=== PATIENT | female | born 1990 | race Caucasian/White ===

== ENCOUNTER 2019-03-30 14:32 | Inpatient (IN) | payer OTHER ==
[~2019-03-30] VITALS: Ht 157.5 cm; Wt 81.6 kg
[2019-03-30] MEDS ORDERED: LACTATED RINGERS 1,000 ML IV SCH (14:37)
[2019-03-30] MEDS ORDERED: NALBUPHINE 10 MG/ML AMP IVP PRN (14:40)
[2019-03-30] MEDS ORDERED: METHYLERGONOVINE 0.2 MG/ML AMP IM PRN (14:40)
[2019-03-30] MEDS ORDERED: PROMETHAZINE 25 MG/ML VIAL IVP PRN (14:40)
[2019-03-30] MEDS ORDERED: CARBOPROST 250 MCG/ML AMP IM PRN (14:40)
[2019-03-30] MEDS ORDERED: AMPICILLIN 2,000 MG VIAL ONE (15:00)
[2019-03-30] MEDS ORDERED: PREN-380 PO (15:09)
[2019-03-30 15:17] LABS: BASOPHILS % (AUTO) 0.2 % (0.0-2.0); EOSINOPHILS % (AUTO) 0.2 % (0.0-4.0); HEMATOCRIT 38.3 % (36-48); HEMOGLOBIN 12.8 g/dL (12.0-16.0); LYMPHOCYTES # (AUTO) 2.3 K/uL (2.5-16.5); LYMPHOCYTES % (AUTO) 24.2 % (20.5-51.1); MEAN CORPUSCULAR HEMOGLOBIN 27 pg (27-31); MEAN CORPUSCULAR HGB CONC 33 g/dL (33-37); MEAN CORPUSCULAR VOLUME 81.8 fL (80-94); MONOCYTES # (AUTO) 0.4 K/uL (0.8-1.0); MONOCYTES % (AUTO) 4.4 % (1.7-9.3); NEUTROPHILS # (AUTO) 6.7 K/uL (1.8-7.7); PLATELET COUNT (AUTO) 286 K/uL (140-450); RED BLOOD CELL COUNT(AUTO) 4.69 MIL/uL (4.20-5.40); RED CELL DISTRIBUTION WIDTH 12.8 % (11.6-13.7); WHITE BLOOD COUNT (AUTO) 9.4 K/uL (4.8-10.8)
[2019-03-30] MEDS ORDERED: AMPICILLIN 2,000 MG in NACL 0.9% MINI-BAG PLUS 100 ML IV SCH (15:30)
[2019-03-30 15:32] LABS: APPEARANCE,URINE CLEAR (CLEAR); BILIRUBIN,URINE NEGATIVE (NEGATIVE); BLOOD, URINE TRACE-I (NEGATIVE); COLOR,URINE YELLOW (YELLOW); LEUKOCYTE ESTERASE ,URINE 1+ (NEGATIVE); NITRITE, URINE NEGATIVE (NEGATIVE); UGLUCOSE NEGATIVE (NEGATIVE)
[2019-03-30 15:37] LABS: ALBUMIN 2.7 g/dL (3.4-5.0); ANION GAP 16.9 (8-16); CREATININE 0.6 mg/dL (0.6-1.3); POTASSIUM 3.9 mmol/L (3.5-5.1); TOTAL BILIRUBIN 0.4 mg/dL (0.0-1.0)
[2019-03-30 15:49] LABS: RBC,URINE 0-5 /HPF (0-5)
[2019-03-30 16:00] VITALS: BP 120/66
[2019-03-30] MEDS ORDERED: BUPIVACAINE 0.125%/NS PREMIX 250 ML ONE (18:12)
[2019-03-30] MEDS ORDERED: EPIDURAL KEYS MC ONE (18:13)
[2019-03-30] MEDS ORDERED: BUPIVACAINE 0.125%/NS PREMIX 250 ML EPI SCH (18:15)
[2019-03-30] MEDS ORDERED: AMPICILLIN 1,000 MG in NACL 0.9% 50 ML IV SCH (19:30)
[2019-03-30] MEDS ORDERED: AMPICILLIN 1,000 MG VIAL ONE (19:42)
[2019-03-30] MEDS ORDERED: OXYTOCIN 20 UNITS/LR PREMIX 1,000 ML IV ONE (22:07)
[2019-03-30] MEDS ORDERED: OXYTOCIN 20 UNITS in LACTATED RINGERS 1,000 ML IV SCH (22:20)
[2019-03-30] MEDS ORDERED: OXYTOCIN 20 UNITS/LR PREMIX 1,000 ML IV SCH (23:09)
[2019-03-31] MEDS ORDERED: METHYLERGONOVINE 0.2 MG/ML AMP IM PRN (00:45)
[2019-03-31] MEDS ORDERED: IBUPROFEN 800 MG TAB PO PRN (00:45)
[2019-03-31] MEDS ORDERED: TEMAZEPAM 15 MG CAP PO PRN (00:45)
[2019-03-31] MEDS ORDERED: OXYTOCIN 10 UNITS/ML VIAL IM PRN (00:45)
[2019-03-31] MEDS ORDERED: MEASLES, MUMPS, AND RUBELLA 1 VIAL SQVAC PRN (00:45)
[2019-03-31] MEDS ORDERED: BENZOCAINE/MENTHOL 20%-0.5% 60 GM CAN TP PRN (00:45)
[2019-03-31] MEDS ORDERED: oxyCODONE/APAP 5/325 MG 1 TAB TAB PO PRN (00:45)
[2019-03-31] MEDS ORDERED: SODIUM PHOSPHATE 118 ML ENEM RC PRN (00:45)
[2019-03-31] MEDS: HYDROcodone/APAP 5/325 MG 1 TAB TAB PO PRN ×3 (06:01→19:44)
--- NOTE | 2019-03-31 10:35 | NUR ---
PATIENT HAS BEEN SCREENED AND CATEGORIZED LOW NUTRITION RISK. PATIENT WILL BE SEEN WITHIN 7 DAYS OF ADMISSION. 04/06/[address]
[2019-03-31] MEDS ORDERED: DOCUSATE SOD/SENNA 50/8.6 MG 1 TAB PO SCH (21:00)
[2019-04-01] MEDS: HYDROcodone/APAP 5/325 MG 1 TAB TAB PO PRN (06:08)
[2019-04-01 06:16] LABS: HEMATOCRIT 34.7 % (36-48); HEMOGLOBIN 11.6 g/dL (12.0-16.0)
[2019-04-01] MEDS ORDERED: FERR325E14 PO (08:30)
[2019-04-01] MEDS ORDERED: IBUP-2213 PO (08:32)
[2019-04-01] MEDS ORDERED: DOCUSATE SOD/SENNA 50/8.6 MG 1 TAB PO SCH (21:00)
== END 2019-04-01 09:40 | disposition home or self-care (01) | DRG 560 ==
LOC: MLD 14:32 → MFCC 03-31 05:37
PROVIDERS: ADMIT Obstetrics & Gynecology; ATTEND Obstetrics & Gynecology
PROC: 10E0XZZ Delivery of Products of Conception, External Approach (ICD-10-PCS; principal; 2019-03-31)
PROC: 0HQ9XZZ Repair Perineum Skin, External Approach (ICD-10-PCS; 2019-03-31)
PROC: 10907ZC Drainage of Amniotic Fluid, Therapeutic from Products of Conception, Via Natural or Artificial Opening (ICD-10-PCS; 2019-03-31)
PROC: 00HU33Z Insertion of Infusion Device into Spinal Canal, Percutaneous Approach (ICD-10-PCS; 2019-03-31)
PROC: 3E0R3BZ Introduction of Anesthetic Agent into Spinal Canal, Percutaneous Approach (ICD-10-PCS; 2019-03-31)
DX: O99.824 Streptococcus B carrier state complicating childbirth (principal); O69.1XX0 Labor and delivery complicated by cord around neck, with compression, not applicable or unspecified; O70.0 First degree perineal laceration during delivery; Z37.0 Single live birth; Z3A.38 38 weeks gestation of pregnancy
CPT/HCPCS: 36415; 51702; 59409; 80053; 81001; 85018; 85025; 86592; 86886; 86900; 86901; 87086; J0290; J2590; J3490; J7120

== ENCOUNTER 2020-04-06 06:14 | Day surgery (SDC) | payer OTHER, SELFPAY ==
[~2020-04-06] VITALS: Ht 154.9 cm; Wt 69.9 kg
[~2020-04-06 06:14] MED LIST: FERR325E14 PO; IBUP-2213 PO; PREN-380 PO
[2020-04-06] MEDS ORDERED: MIDAZOLAM 2 MG/2 ML VIAL ONE (07:32)
[2020-04-06] MEDS ORDERED: LIDOCAINE 2% 100 MG/5 ML UJET TP ONE ×2 (07:32→08:10)
[2020-04-06] MEDS ORDERED: fentaNYL citrate 0.05 MG/ML VIAL ONE (07:32)
[2020-04-06] MEDS ORDERED: fentaNYL citrate 0.05 MG/ML VIAL IVP ONE (08:10)
== END 2020-04-06 08:30 | disposition home or self-care (01) ==
LOC: MOR 06:14 → MFCC 06:14 → MOR 08:30
PROVIDERS: ATTEND Internal Medicine Gastroenterology
DX: Z12.11 Encounter for screening for malignant neoplasm of colon (principal); K57.30 Diverticulosis of large intestine without perforation or abscess without bleeding; Z80.0 Family history of malignant neoplasm of digestive organs; Z20.828 Contact with and (suspected) exposure to other viral communicable diseases
CPT/HCPCS: 45378; 81025; J3010; U0003; J2250